=== PATIENT | female | born 1970 | race Caucasian/White ===

== ENCOUNTER 2017-11-14 12:33 | Emergency (ER) | payer OTHER ==
[~2017-11-14] VITALS: Ht 154.9 cm; Wt 61.2 kg
[~2017-11-14 12:33] MED LIST: ALBU90OI INH; ALBU90OI6 INH; ALBU90OI61 INH; AMOX500 PO; AZIT250 PO; Aspirin EC81 MG PO; Ativan1 MG PO; BENZ100A PO; BUPR150T2 PO; CIPR500 PO; CIPRO500 MG PO; CLIN300 PO; CLON1 PO; CODGUAEL PO; CYCL10 PO; FAMO20 PO; Flagyl500 MG PO; GABA100 PO; HYDACE5; HYDACE5 PO; HYDR1TAB94; HYDR1TAB94 PO; IBUP800 PO; MOMENI; MULVITMINE; MULVITMINE PO; Macrobid 100 M100 MG PO; NAPR500 PO; Norco 5-325 Ta1 EACH PO; OMEP20ER PO; ONDA8ODT MM; OSEL75CA PO; OXYACE5T PO; PENVK500 PO; PRED20 PO; PROC5 PO; PROM25 PO; RXCLIN PO; SULTRIDS PO; SYMBICORT INH; TERB250 PO; TRAM50 PO; TRAZ100 PO; Vistaril25 MG PO
[2017-11-14] MEDS ORDERED: Oxycodone-Apap1 EAC3 PO (12:54)
[2017-11-14] MEDS ORDERED: AMOX250CH PO (12:54)
== END 2017-11-14 13:53 | disposition home or self-care (01) ==
LOC: ER 12:33
DX: S00.12XA Contusion of left eyelid and periocular area, initial encounter (principal); R20.0 Anesthesia of skin; Y04.8XXA Assault by other bodily force, initial encounter

== ENCOUNTER 2017-12-12 09:16 | Emergency (ER) | payer OTHER ==
[~2017-12-12] VITALS: Ht 154.9 cm; Wt 63.5 kg
[~2017-12-12 09:16] MED LIST changes: +AMOX250CH PO; +Oxycodone-Apap1 EAC3 PO
[2017-12-12] MEDS ORDERED: ALBU90OI INH (10:59)
== END 2017-12-12 12:04 | disposition home or self-care (01) ==
LOC: ER 09:16
DX: R59.0 Localized enlarged lymph nodes (principal); J45.909 Unspecified asthma, uncomplicated; F17.210 Nicotine dependence, cigarettes, uncomplicated
CPT/HCPCS: 99281

== ENCOUNTER 2018-03-08 09:33 | Emergency (ER) | payer OTHER | END 2018-03-08 09:57 | disposition left against medical advice (07) | LOC: ER 09:33 | DX: Z53.21 Procedure and treatment not carried out due to patient leaving prior to being seen by health care provider (principal) ==

== ENCOUNTER → 2018-03-08 | Outpatient (CLI) | payer OTHER | END | disposition home or self-care (01) | LOC: LAB EV 11:05 → LAB SHORT 11:05 | DX: L03.211 Cellulitis of face (principal) | CPT/HCPCS: 87070; 87205 ==

== ENCOUNTER → 2018-08-21 | Outpatient (CLI) | payer OTHER | END | disposition home or self-care (01) | LOC: LAB EV 17:00 → LAB SHORT 17:00 | DX: L02.02 Furuncle of face (principal) | CPT/HCPCS: 87070; 87077; 87147; 87186; 87205 ==

== ENCOUNTER 2020-04-13 11:11 | Emergency (ER) | payer OTHER ==
[~2020-04-13] VITALS: Ht 152.4 cm; Wt 62.6 kg
[2020-04-13 13:53] LABS: Source, Urine Clean Catch
[2020-04-13 13:58] LABS: Bilirubin, Urine Neg (Neg); Blood, Urine Neg (Neg); Glucose Qualitative, Urine Neg (Neg); Ketones, Urine Neg (Neg); Leukocyte Esterase, Urine Neg (Neg); Nitrite, Urine Neg (Neg); Protein, Urine Neg (Neg); Urobilinogen, Urine NORM (Normal)
[2020-04-13 14:06] LABS: Appearance, Urine Clear (Clear); Color, Urine Pale Yellow (P-Yellow)
== END 2020-04-13 12:26 | disposition left against medical advice (07) ==
LOC: ER 11:11
PROVIDERS: Emergency Medicine
DX: R10.9 Unspecified abdominal pain (principal); Z53.21 Procedure and treatment not carried out due to patient leaving prior to being seen by health care provider
CPT/HCPCS: 81003; 81025

== ENCOUNTER → 2022-12-20 | Outpatient (CLI) | payer OTHER ==
[2022-12-21 09:52] LABS: Candida species (DNA Probe) Negative (NEGATIVE); G. vaginalis (DNA Probe) Negative (NEGATIVE); T. vaginalis (DNA Probe) Positive (NEGATIVE)
[2022-12-24 08:10] LABS: HPV 16 Negative (Negative); HPV 18 Negative (Negative); HPV OTHER HR TYPES Negative (Negative)
== END | disposition home or self-care (01) ==
LOC: LAB SHORT 13:45 → LAB 13:45
PROVIDERS: Nurse Practitioner Family
DX: Z01.419 Encounter for gynecological examination (general) (routine) without abnormal findings (principal); N89.8 Other specified noninflammatory disorders of vagina
CPT/HCPCS: 87480; 87510; 87624; 87660; G0145